=== PATIENT | male | born 1950 | race Caucasian/White ===

== ENCOUNTER 2017-02-18 16:32 | Emergency (ER) | payer OTHER ==
[2017-02-18 16:36] VITALS: BMI 22.1
--- NOTE | 2017-02-18 17:39 | PDOC ---
Attending Attestation - Resident Resident Name: Pauline Cullen - HPI HPI: 02/18/17 21:14 Pt presents to the ED complaining of a one day history of generalized malaise. Denies other complaints. remains able to ambulate for long distances. - Physicial Exam PE: 02/18/17 21:19 Agree with resident's exam. Patient is well apearing and in no distress. - Medical Decision Making 02/18/17 21:21 Pt presents to the Ed complaining of generalized malaise. No chest pain or shortness of breath. Lab work is normal. Will discharge home with follow up with PMD.
--- NOTE | 2017-02-18 18:24 | PDOC ---
History of Present Illness - General Chief Complaint: Weakness Stated Complaint: Left arm/shoulder pain, weakness Time Seen by Provider: 02/18/17 17:20 History Source: Patient Exam Limitations: No Limitations - History of Present Illness Initial Comments: 02/18/17 17:56 This is a 66 yo male with h/o CVA (July 2016), carotid stenosis, HLD, and throat cancer (2 years ago in remission after chemoradiation) who presents c/o fatigue and generalized weakness for the past two days, and left arm numbness for the past 2 days. He notes sleeping more than normal and feeling like his muscles are weaker than normal. He is still able to walk long distances without stopping but notes that this makes him more tired than normal over the past two days. He additionally notes chills and left arm numbness. He has unchanged chronic headache and neck ache, and SOB and notes that these are no worse than normal. He denies any measured fever, nausea, vomiting, diarrhea, constipation, black/bloody stool, coughing or vomiting blood, chest pain, painful urination, cough, sore throat, back pain, or any difficulty walking, balancing, speaking, or swallowing. Past History - Past Medical History Allergies/Adverse Reactions: Allergies Allergy/AdvReac Type Severity Reaction Status Date / Time lactose AdvReac Severe Verified 02/18/17 16:36 Home Medications: Ambulatory Orders Aspirin [ASA -] 81 mg PO DAILY 08/29/15 Atorvastatin Ca [Lipitor -] 20 mg PO HS #30 tablet 09/02/15 Clopidogrel Bisulfate [Plavix -] 75 mg PO DAILY #30 tablet 09/02/15 Escitalopram Oxalate [Lexapro -] 10 mg PO DAILY #30 tablet 09/02/15 Anemia: Yes Cancer: Yes (THROAT CA) CVA: Yes (07/2016) GI Disorders: Yes HTN: Yes Hypercholesterolemia: Yes - Surgical History GI Surgery: Yes (gtube placed) - Immunization History Immunization Up to Date: Yes - Psycho/Social/Smoking Cessation Hx Anxiety: Yes Suicidal Ideation: No Smoking History: Never smoked Have you smoked in the past 12 months: No Number of Cigarettes Smoked Daily: 0 If you are a former smoker, when did you quit?: 2010 Information on smoking cessation initiated: No Hx Alcohol Use: No Drug/Substance Use Hx: No Substance Use Type: None Hx Substance Use Treatment: No Review of Systems - Review of Systems Able to Perform ROS?: Yes Constitutional: Yes: Chills, Weakness, Other (fatigue). No: Fever, Unexplained wgt Loss HEENTM: No: Nose Congestion, Throat Pain Respiratory: Yes: Shortness of Breath (states chronic). No: Cough Cardiac (ROS): No: Chest Pain, Palpitations ABD/GI: No: Constipated, Diarrhea, Nausea, Vomiting : No: Burning, Dysuria Musculoskeletal: No: Back Pain, Neck Pain Integumentary: No: Bruising, Rash Neurological: Yes: Numbness (left arm). No: Headache, Tingling, Weakness, Dizziness Endocrine: No: Unexplained Weight Gain, Unexplained Weight Loss *Physical Exam - Vital Signs Last Vital Signs Temp Pulse Resp BP Pulse Ox 98.4 F 86 17 115/68 100 02/18/17 16:34 02/18/17 16:34 02/18/17 16:34 02/18/17 16:34 02/18/17 16:34 - Physical Exam General Appearance: Yes: Nourished, Appropriately Dressed, Other (well-appearing , nontoxic, moving all four extremities, conversing appropriately and answering questions, appears comfortable). No: Apparent Distress HEENT: positive: EOMI, GURU, Normal ENT Inspection, Normal Voice, Hearing Grossly Normal. negative: Scleral Icterus (R), Scleral Icterus (L), Nasal Congestion Neck: positive: Trachea midline, Supple. negative: Tender, Rigid Respiratory/Chest: positive: Lungs Clear, Normal Breath Sounds. negative: Respiratory Distress, Crackles, Rhonchi, Stridor, Wheezing Cardiovascular: positive: Regular Rhythm, Regular Rate. negative: Edema, JVD, Murmur Gastrointestinal/Abdominal: positive: Normal Bowel Sounds, Soft. negative: Tender, Organomegaly, Pulsatile Mass, Guarding Musculoskeletal: positive: Normal Inspection. negative: CVA Tenderness, Decreased Range of Motion, Vertebral Tenderness Extremity: positive: Normal Capillary Refill, Normal Inspection, Normal Range of Motion. negative: Tender, Cyanosis Integumentary: positive: Normal Color, Dry, Warm. negative: Erythema, Rash, Bruising Neurologic: positive: psychiatry resident II-XII NML intact, Fully Oriented, Alert, Normal Mood/ Affect, Normal Response, Motor Strength 5/5, Finger to Nose (normal), Other (no pronator drift, normal gait). negative: Facial Droop, Numbness, Sensory Deficit , Confused, Disoriented ED Treatment Course - LABORATORY CBC & Chemistry Diagram: 02/18/17 18:36 02/18/17 18:36 Medical Decision Making - Medical Decision Making 66 YOM with h/o CVA, carotid stenosis, throat CA s/p chemoradiation who presents c/o fatigue and generalized weakness x2d. Exam is within normal limits, no neuro focal deficits, no heart murmur, no swelling. DDX includes electrolyte abnormality, dehydration, UTI, anemia. Unlikely CVA or TIA given normal neuro exam and intact sensation bilaterally. Unlikely CHF as Pt has no swelling, JVD, heart murmur, or other signs. Ordered are CBCD, CMP, Mg, Phos, UA with cx. Laboratories return without significant abnormality. 1+ blood in UA could be explained by Pt's BPH. Serial neurological examinations are within normal limits and unchanged. Despite reported left arm mild numbness, sensation is intact and equal bilaterally. The patient wishes to go home and is appropriate for outpatient management. He will f/u with his PCP or return to ED for any new/worsening sxs. *DC/Admit/Observation/Transfer Diagnosis at time of Disposition: Weakness - Discharge Dispostion Disposition: HOME Condition at time of disposition: Stable Admit: No - Referrals Referrals: Ivette Nunes MD [Primary Care Provider] - - Patient Instructions Printed Discharge Instructions: DI for Muscle Weakness, DI for Fatigue Additional Instructions: You were seen in the ED today for generalized weakness and fatigue. Your neurological exam was normal. We did blood and urine laboratories, which were also essentially normal. We feel comfortable sending you home tonight based on these results. Please do follow up with your regular doctor tomorrow or early next week. You can also return to the ED for any new or worsening symptoms like fever, chest pain, worsened shortness of breath, difficulty speaking/swallowing/ balancing/walking, or weakness of specific parts or a specific side of your body.
[2017-02-18 18:51] LABS: BASOPHIL 1.2 % (0-2.0); EOSINOPHIL 2.9 % (0-4.5); MCH 31.6 pg (25.7-33.7); MCHC 34.2 g/dl (32.0-35.9); MEAN CELL VOLUME 92.3 fl (80-96); MEAN PLT VOLUME 7.2 fl (7.5-11.1); PLATELET COUNT 239 K/MM3 (134-434); RDW 13.4 % (11.9-15.9); WHITE BLOOD COUNT 7.5 K/mm3 (4.0-10.0)
[2017-02-18 18:54] LABS: URINE APPEARANCE CLEAR; URINE BILIRUBIN NEGATIVE (NEGATIVE); URINE BLOOD 1+ (NEGATIVE); URINE COLOR LTYELLOW; URINE GLUCOSE (UA) NEGATIVE (NEGATIVE); URINE KETONE NEGATIVE (NEGATIVE); URINE LEUK ESTERASE NEGATIVE (NEGATIVE); URINE NITRITE NEGATIVE (NEGATIVE); URINE PROTEIN NEGATIVE (NEGATIVE); URINE UROBILINOGEN NEGATIVE mg/dL (0.2-1.0)
[2017-02-18 19:20] LABS: URINE MUCUS RARE; URINE RBC 2 /hpf (0-3); URINE WBC <1 /hpf (3-5)
[2017-02-18 19:32] LABS: ALBUMIN 4.3 g/dl (3.4-5.0); ALK PHOS 44 U/L (45-117); ANION GAP 9 (8-16); BILIRUBIN,TOTAL 0.4 mg/dL (0.2-1.0); CALCIUM 10.4 mg/dL (8.5-10.1); CO2 26 mmol/L (21-32); CREATININE 0.9 mg/dL (0.7-1.3); GLUCOSE,RANDOM 96 mg/dL (74-106); MAGNESIUM 2.3 mg/dL (1.8-2.4); PHOSPHOROUS 3.7 mg/dL (2.5-4.9); SGOT/AST 13 U/L (15-37); SGPT/ALT 25 U/L (12-78); TOT PROT 7.4 g/dl (6.4-8.2)
[2017-02-18 20:52] VITALS: BP 118/74; PULSE 78; TEMP 98.6
== END 2017-02-18 20:52 | disposition home or self-care (01) ==
LOC: JER 16:32
DX: R53.1 Weakness (principal); Z85.01 Personal history of malignant neoplasm of esophagus; I10 Essential (primary) hypertension; Z87.898 Personal history of other specified conditions; Z87.891 Personal history of nicotine dependence; Z86.73 Personal history of transient ischemic attack (TIA), and cerebral infarction without residual deficits; E78.00 Pure hypercholesterolemia, unspecified
CPT/HCPCS: 36415; 80053; 81003; 81015; 83735; 84100; 85025; 87086; 99283-25

== ENCOUNTER 2024-09-13 16:17 | Observation (INO) | payer OTHER ==
[2024-09-13 16:40] VITALS: BMI 22.2
[2024-09-13] MEDS ORDERED: ACETAMINOPHEN 325 MG TABLET (FP) ONE (16:48)
[2024-09-13] MEDS: ACETAMINOPHEN 500 MG TABLET (FP) PO ONE (17:07)
[2024-09-13 17:10] LABS: ABSOLUTE IMMATURE GRANULOCYTES 0.05 x10^3/uL (0.0-0.031); BASOPHILS # 0.06 x10^3/uL (0.01-0.08); EOSINOPHIL % 0.1 % (0.8-7.0); EOSINOPHILS # 0.01 x10^3/uL (0.04-0.54); HEMATOCRIT 46.3 % (40.1-51.0); HEMOGLOBIN 14.9 g/dL (13.7-17.5); MCHC 32.2 g/dl (32.3-36.5); MEAN CELL VOLUME 87.7 fl (79.0-92.2); MEAN PLT VOLUME 8.4 fl (9.4-12.4); MONOCYTE # 0.96 x10^3/uL (0.30-0.82); MONOCYTE % 7.2 % (5.3-12.2); PLATELET COUNT 336 x10^3/uL (163-337); RDW 13.4 % (12.2-16.6)
[2024-09-13 17:59] LABS: ALBUMIN 3.6 g/dl (3.4-5.0); BLOOD UREA NITROGEN 13.6 mg/dL (7-18); CALCIUM 9.2 mg/dL (8.5-10.1)
[2024-09-13 18:02] LABS: CREATININE 0.8 mg/dL (0.55-1.3)
[2024-09-13 18:04] LABS: BILIRUBIN,TOTAL 0.8 mg/dL (0.2-1); TOT PROT 7.1 g/dl (6.4-8.2)
[2024-09-13 18:22] LABS: HCV DIAGNOSTIC IN-HOUSE W/RFLX NON-REACTIVE (NONREACTIVE)
[2024-09-13 18:23] LABS: HIV INTERPRETATION NEGATIVE (NEGATIVE)
[2024-09-13] MEDS ORDERED: CEFTRIAXONE 1 G/50 ML PREMIX 50 ML IVPB ONE (18:32)
[2024-09-13] MEDS ORDERED: POTASSIUM CHLORIDE ORAL LIQUID 20 MEQ/15 ML ONE (18:32)
[2024-09-13] MEDS ORDERED: AZITHROMYCIN IVPB 500 MG/250 ML BAG IVPB ONE (18:33)
[2024-09-13] MEDS: POTASSIUM CHLORIDE ORAL LIQUID 20 MEQ/15 ML PO ONE (18:48)
[2024-09-13] MEDS: CEFTRIAXONE 1 GM in DEXTROSE 5%-WATER - 100 ML IVPB ONE (18:48)
[2024-09-13] MEDS: AZITHROMYCIN IVPB 500 MG in DEXTROSE 5%-WATER - 250 ML IVPB ONE (18:49)
[2024-09-13] MEDS ORDERED: ACETAMINOPHEN 325 MG TABLET (FP) PO PRN (20:07)
[2024-09-13] MEDS ORDERED: ALBUTEROL SO4 2.5/IPRATROPIUM 0.5 INH SOL 3 ML VIAL.NEB. NEB PRN (20:46)
[2024-09-14 07:30] VITALS: BP 137/69; PULSE 77; TEMP 97.5
[2024-09-14 08:00] LABS: HEMATOCRIT 39.3 % (40.1-51.0); HEMOGLOBIN 12.8 g/dL (13.7-17.5); MCHC 32.6 g/dl (32.3-36.5); MEAN CELL VOLUME 86.6 fl (79.0-92.2); MEAN PLT VOLUME 8.6 fl (9.4-12.4); PLATELET COUNT 271 x10^3/uL (163-337); RDW 13.2 % (12.2-16.6)
[2024-09-14 08:19] LABS: POTASSIUM 3.3 mmol/L (3.5-5.1)
[2024-09-14 08:28] LABS: BLOOD UREA NITROGEN 13.9 mg/dL (7-18); CALCIUM 8.8 mg/dL (8.5-10.1)
[2024-09-14 08:29] LABS: MAGNESIUM 2.1 mg/dL (1.8-2.4)
[2024-09-14 08:32] LABS: CREATININE 0.6 mg/dL (0.55-1.3)
[2024-09-14 08:33] LABS: BILIRUBIN,TOTAL 0.4 mg/dL (0.2-1)
[2024-09-14 08:34] LABS: TOT PROT 5.9 g/dl (6.4-8.2)
[2024-09-14 08:43] LABS: ALBUMIN 2.8 g/dl (3.4-5.0)
[2024-09-14] MEDS: LEVOTHYROXINE NA 25 MCG TABLET (FP) PO SCH (10:03)
[2024-09-14] MEDS: ASPIRIN 81 MG CHEWABLE TABLETS PO SCH (10:03)
[2024-09-14] MEDS: POTASSIUM CHLORIDE ORAL LIQUID 20 MEQ/15 ML PO ONE (10:14)
[2024-09-14] MEDS: CEFTRIAXONE 1 G/50 ML PREMIX 50 ML IVPB ONE (10:15)
[2024-09-14] MEDS: AZITHROMYCIN IVPB 500 MG/250 ML BAG IVPB SCH (11:27)
[2024-09-14 14:13] VITALS: RESP 17
[2024-09-14] MEDS: NAPH,MB-DB/K PH,MBDB POWDER PACKET PO ONE (17:47)
== END 2024-09-14 19:05 | disposition home or self-care (01) ==
LOC: JER 16:17 → JERBED 18:40 → J7W 22:17
PROVIDERS: ADMIT Hospitalist; ATTEND Physician Assistant
DX: J40 Bronchitis, not specified as acute or chronic (principal); D64.9 Anemia, unspecified; D72.829 Elevated white blood cell count, unspecified; E87.6 Hypokalemia; E78.5 Hyperlipidemia, unspecified; I65.21 Occlusion and stenosis of right carotid artery; Z85.818 Personal history of malignant neoplasm of other sites of lip, oral cavity, and pharynx; E03.9 Hypothyroidism, unspecified; Z59.00 Homelessness unspecified; Z86.73 Personal history of transient ischemic attack (TIA), and cerebral infarction without residual deficits; Z96.642 Presence of left artificial hip joint
CPT/HCPCS: 0241U-QW; 36415; 71045-TC-FY; 80053; 83735; 84100; 85025; 85027; 86803; 87389; 93005; 93010; 96365; 96367; 96368; 99285-25; G0378